=== PATIENT | male | born 1960 | race Caucasian/White ===

== ENCOUNTER 2016-11-08 01:06 | Emergency (ER) | payer BC ==
[2016-11-08 01:15] VITALS: RESP 18; TEMP 97.5
[2016-11-08 01:34] LABS: APPEARANCE,URINE Slightly Cloudy; BILIRUBIN,URINE NEGATIVE (NEGATIVE); COLOR,URINE Yellow; GLUCOSE, URINE (UA) NEGATIVE (NEGATIVE); KETONES,URINE NEGATIVE (NEGATIVE); LEUKOCYTE ESTERASE ,URINE NEGATIVE (NEGATIVE); NITRATE,URINE NEGATIVE (NEGATIVE); OCCULT BLOOD,URINE 2+ (NEG-TRACE); PH,URINE 7.5; UROBILINOGEN,URINE 0.2 (0.2-1.0 EU)
[2016-11-08] MEDS ORDERED: HYDROMORPHONE HCL 2 MG/ML SOL IM ONE (01:41)
[2016-11-08 01:42] LABS: WBC,URINE NEGATIVE (0-5AV/HPF)
[2016-11-08] MEDS ORDERED: SODIUM CHLORIDE 0.9% 1000ML 1,000 ML IV ONE ×2 (01:42→03:00)
[2016-11-08] MEDS ORDERED: HYDROMORPHONE 1 MG/ML SYRINGE ONE ×2 (01:45→02:41)
[2016-11-08] MEDS ORDERED: SODIUM CHLORIDE 0.9% FLUSH 10 ML SOL IV PRN (01:49)
[2016-11-08] MEDS ORDERED: HYDROMORPHONE HCL 2 MG/ML SOL IV ONE (01:51)
[2016-11-08] MEDS ORDERED: HYDROMORPHONE 1 MG/ML SYRINGE IV ONE (01:52)
[2016-11-08] MEDS ORDERED: TAMSULOSIN HYDROCHLORIDE 0.4 MG CAP ONE (02:36)
[2016-11-08] MEDS ORDERED: HYDROMORPHONE 1 MG/ML SYRINGE IV PRN (02:42)
[2016-11-08] MEDS ORDERED: APAP/OXYCODONE 325/5 TAB PO ONE (03:47)
[2016-11-08] MEDS ORDERED: APAP/OXYCODONE 325/5 TAB ONE (03:53)
[2016-11-08 03:54] VITALS: BP 146/92; PULSE 80; O2SAT 95
[2016-11-08] MEDS ORDERED: TAMSULOSIN HYDROCHLORIDE 0.4 MG CAP PO SCH (21:00)
== END 2016-11-08 04:05 | disposition home or self-care (01) ==
LOC: ED 01:06
DX: N13.2 Hydronephrosis with renal and ureteral calculous obstruction (principal)
CPT/HCPCS: 99285 ×3; 74176; 81001; J1170 ×2; 51798

== ENCOUNTER 2016-12-30 11:45 | Day surgery (SDC) | payer BC ==
[2016-12-30 12:10] VITALS: RESP 16
[2016-12-30] MEDS: TRIAMCINOLONE ACETONIDE 40 MG/ML SUS ONE ×2 (12:33→12:53)
[2016-12-30] MEDS ORDERED: LIDOCAINE HCL 1% MPF SOL ONE (12:40)
[2016-12-30 13:10] VITALS: BP 130/87; PULSE 68; TEMP 98; O2SAT 98
== END 2016-12-30 13:21 | disposition home or self-care (01) ==
LOC: SURG 11:45
PROVIDERS: ATTEND Nurse Anesthetist, Certified Registered
DX: M54.5 Low back pain (principal); M54.10 Radiculopathy, site unspecified
CPT/HCPCS: 62323; 77003; J2001; J3300

== ENCOUNTER 2017-04-15 13:57 | Day surgery (SDC) | payer BC ==
[2017-04-15] MEDS ORDERED: DEXAMETHASONE SOD PHOS PF 10 MG/ML SOL IJ ONE (14:30)
[2017-04-15] MEDS ORDERED: BUPIVACAINE HCL 0.25% MPF 10 ML SOL INFIL ONE (14:30)
[2017-04-15 15:02] VITALS: BP 135/78; PULSE 83; RESP 20; TEMP 97.4; O2SAT 97
== END 2017-04-15 15:15 | disposition home or self-care (01) ==
LOC: SURG 13:57
PROVIDERS: ATTEND Nurse Anesthetist, Certified Registered
DX: M54.5 Low back pain (principal); M54.16 Radiculopathy, lumbar region
CPT/HCPCS: J1100

== ENCOUNTER 2017-05-19 08:36 | Day surgery (SDC) | payer BC ==
[2017-05-19] MEDS ORDERED: BUPIVACAINE HCL 0.25% MPF 10 ML SOL INFIL ONE (08:50)
[2017-05-19] MEDS: DEXAMETHASONE SOD PHOS PF 10 MG/ML SOL IJ ONE ×2 (09:13→09:20)
[2017-05-19 09:32] VITALS: BP 136/91; PULSE 68; RESP 16; TEMP 98.7; O2SAT 96
== END 2017-05-19 09:50 | disposition home or self-care (01) ==
LOC: SURG 08:36
PROVIDERS: ATTEND Nurse Anesthetist, Certified Registered
DX: M54.5 Low back pain (principal); M54.16 Radiculopathy, lumbar region
CPT/HCPCS: J1100

== ENCOUNTER 2017-07-18 15:08 | Emergency (ER) | payer BC ==
[2017-07-18 15:15] VITALS: RESP 16; TEMP 97.5
[2017-07-18] MEDS ORDERED: PROPARACAINE HCL 0.5% OPHTHALMIC SOL OP ONE (15:33)
[2017-07-18] MEDS ORDERED: PROPARACAINE HCL 0.5% OPHTHALMIC SOL ONE (15:35)
[2017-07-18 16:42] VITALS: BP 127/114; PULSE 87; O2SAT 96
== END 2017-07-18 16:46 | disposition short-term general hospital (02) ==
LOC: ED 15:08
DX: H57.12 Ocular pain, left eye (principal)
CPT/HCPCS: 99283; A9270-GY

== ENCOUNTER 2017-07-28 10:59 | Day surgery (SDC) | payer BC ==
[2017-07-28] MEDS ORDERED: DIAZEPAM 5 MG TAB ONE (11:07)
[2017-07-28 11:16] VITALS: TEMP 98.5
[2017-07-28] MEDS ORDERED: BUPIVACAINE HCL 0.25% MPF 10 ML SOL INFIL ONE (11:30)
[2017-07-28] MEDS ORDERED: LIDOCAINE HCL 1% MPF SOL ONE (11:30)
[2017-07-28 12:04] VITALS: PULSE 63
[2017-07-28 12:22] VITALS: BP 133/86; RESP 18; O2SAT 96
== END 2017-07-28 12:33 | disposition home or self-care (01) ==
LOC: SURG 10:59
PROVIDERS: ATTEND Nurse Anesthetist, Certified Registered
DX: M54.9 Dorsalgia, unspecified (principal); M12.88 Other specific arthropathies, not elsewhere classified, other specified site
CPT/HCPCS: A9270-GY; J2001

== ENCOUNTER 2017-10-12 10:05 | Day surgery (SDC) | payer BC ==
[2017-10-12] MEDS ORDERED: BUPIVACAINE HCL 0.25% MPF 30 ML SOL INFIL ONE (11:46)
[2017-10-12] MEDS ORDERED: LIDOCAINE HCL 1% MPF 30 SOL ONE (11:46)
[2017-10-12] MEDS ORDERED: LIDOCAINE HCL 2% MPF 10 ML SOL ONE (11:47)
[2017-10-12] MEDS: SODIUM CHLORIDE 0.9% FLUSH 10 ML SOL IV ONE ×3 (11:56→12:32)
[2017-10-12] MEDS: MIDAZOLAM 2 MG/2 ML SOL ONE ×2 (11:56→12:08)
[2017-10-12] MEDS: FENTANYL 100MCG/2ML SOL ONE ×3 (11:57→12:33)
[2017-10-12 12:07] VITALS: TEMP 98.2
[2017-10-12] MEDS: TRIAMCINOLONE ACETONIDE 40 MG/ML SUS ONE ×2 (12:28→12:57)
[2017-10-12] MEDS ORDERED: FENTANYL 100MCG/2ML SOL ONE (12:31)
[2017-10-12 13:46] VITALS: BP 132/92; PULSE 75; RESP 12; O2SAT 93
== END 2017-10-12 13:37 | disposition home or self-care (01) ==
LOC: SURG 10:05
PROVIDERS: ATTEND Nurse Anesthetist, Certified Registered
DX: M12.88 Other specific arthropathies, not elsewhere classified, other specified site (principal); M54.5 Low back pain
CPT/HCPCS: 76000; J2250; J3010; A6402; J2001; J3300